=== PATIENT | male | born 1995 | race Caucasian/White ===

== ENCOUNTER → 2022-10-31 | Emergency (ER) | payer OTHER ==
[~2022-10-31] VITALS: Ht 180.3 cm; Wt 104.3 kg
[~2022-10-31] MED LIST: BACI30OI9 TP; BACITRACIN ZINC OINT PACKET 1 EA PACKET TP ONE
--- NOTE | 2022-10-31 13:43 | NUR ---
Patient [id number] able to express his concerns, patient states he cut himself with a bread knife. Discussed plan of care, patient verbalized agreement.
[2022-10-31 14:33] VITALS: BP 130/78
--- NOTE | 2022-10-31 14:34 | NUR ---
Patient discharged to home in stable condition. Written and verbal after care instructions given. Patient verbalizes understanding of instruction. In stable condition.
== END | disposition home or self-care (01) ==
LOC: ER 13:43
DX: S61.112A Laceration without foreign body of left thumb with damage to nail, initial encounter (principal); Z60.2 Problems related to living alone; W26.0XXA Contact with knife, initial encounter; Y93.89 Activity, other specified; Y92.89 Other specified places as the place of occurrence of the external cause; Y99.0 Civilian activity done for income or pay
CPT/HCPCS: 99282; A6403